=== PATIENT | female | born 1940 | race Caucasian/White ===

== ENCOUNTER 2017-07-08 15:56 | Inpatient (IN) ==
[2017-07-08] MEDS ORDERED: ALBUTEROL 2.5 MG/3 ML NEB RESP TX STA (17:14)
[2017-07-08] MEDS ORDERED: FUROSEMIDE 40 MG/4 ML VIAL IV STA (17:26)
[2017-07-08] MEDS ORDERED: FUROSEMIDE 40 MG/4 ML VIAL ONE (17:38)
[2017-07-08 17:55] LABS: Basophils % 0.7 % (0.0-0.8); Eosinophils % 0.2 % (0.00-10.9); Hematocrit 32.3 VOL% (35.7-47.0); Hemoglobin 10.1 GM/DL (12.0-16.0); Immature Granulocytes % 0.7 %; Immature Granulocytes Absolute 0.04 #; Lymphocytes # 0.9 10*3/uL (1.4-4.0); Lymphocytes % 14.5 % (21.3-54.2); Mean Corpuscular HGB Conc 31.3 GM/DL (32-36); Mean Corpuscular Hemoglobin 29 PG (27-34); Mean Corpuscular Volume 93.4 FL (87-102); Mean Platelet Volume 10.9 FL (9.6-12.0); Monocytes # 0.5 10*3/uL (0.11-0.8); Neutrophils # 4.6 10*3/uL (1.4-7.4); Neutrophils % 75.9 % (38.7-73.9); Platelet Count 199 T/CUMM (130-400); Red Blood Count 3.46 MC/CUMM (3.8-5.5); Red Cell Distribution Width 18.6 % (9.3-17.3)
[2017-07-08] MEDS ORDERED: ACETAMINOPHEN 325 MG TABLET PO PRN (18:03)
[2017-07-08] MEDS ORDERED: MORPHINE 2 MG/1 ML SYRINGE IV PRN (18:03)
[2017-07-08] MEDS ORDERED: DEXTROSE 50% 25 GM/50 ML VIAL IV PRN (18:03)
[2017-07-08] MEDS ORDERED: LACTULOSE 20 GM/30 ML UDCUP PO PRN (18:03)
[2017-07-08] MEDS ORDERED: ZALEPLON 5 MG CAPSULE PO PRN (18:03)
[2017-07-08] MEDS ORDERED: ONDANSETRON 4 MG/2 ML VIAL IV PRN (18:03)
[2017-07-08] MEDS ORDERED: GLUCAGON 1 MG VIAL IM PRN (18:03)
[2017-07-08] MEDS ORDERED: MAGNESIUM SULF RIDER 4 GM in PREMIX 1 EACH IV PRN (18:03)
[2017-07-08] MEDS ORDERED: WARFARIN 5 MG TABLET PO STA (18:25)
[2017-07-08] MEDS ORDERED: ENOXAPARIN 40 MG/0.4 ML SYRINGE SUBCUT SCH (18:30)
[2017-07-08 18:55] LABS: Alanine Aminotransferase 21 U/L (13-56); Albumin 3.9 G/DL (3.4-5.0); Alkaline Phosphatase 87 U/L (45-117); Aspartate Amino Transferase 22 U/L (0-37); Blood Urea Nitrogen 13 MG/DL (7-18); Calcium 9.1 MG/DL (8.5-10.1); Glucose 101 MG/DL (74-106); Potassium 3.9 MMOL/L (3.5-5.1); Sodium 136 MMOL/L (136-145); Total Protein 7.7 G/DL (6.4-8.3); Troponin I Only < 0.015 NG/ML (0.00-0.045)
[2017-07-08] MEDS ORDERED: ENOXAPARIN 40 MG/0.4 ML SYRINGE ONE (19:14)
[2017-07-08] MEDS: LEVALBUTEROL 0.63 MG/3 ML NEB RESP TX SCH (19:15)
[2017-07-08 19:41] LABS: INR 3.8
[2017-07-08 19:48] LABS: PT Patient Result 38.1 SECS
[2017-07-08] MEDS: hydrALAZINE 25 MG TABLET PO SCH (22:01)
[2017-07-08] MEDS: METHENAMINE HIPPURATE 1 GM TABLET PO SCH (22:01)
[2017-07-09] MEDS: LEVALBUTEROL 0.63 MG/3 ML NEB RESP TX SCH ×4 (01:48→20:09)
[2017-07-09 05:59] LABS: Basophils % 0.7 % (0.0-0.8); Hematocrit 28.9 VOL% (35.7-47.0); Hemoglobin 9.5 GM/DL (12.0-16.0); Immature Granulocytes % 0.5 %; Immature Granulocytes Absolute 0.03 #; Lymphocytes # 0.8 10*3/uL (1.4-4.0); Lymphocytes % 13.8 % (21.3-54.2); Mean Corpuscular HGB Conc 32.9 GM/DL (32-36); Mean Corpuscular Hemoglobin 29 PG (27-34); Mean Corpuscular Volume 89.2 FL (87-102); Mean Platelet Volume 11.1 FL (9.6-12.0); Monocytes # 0.6 10*3/uL (0.11-0.8); Monocytes % 10.4 % (1.7-12.7); Neutrophils # 4.3 10*3/uL (1.4-7.4); Neutrophils % 74.6 % (38.7-73.9); Platelet Count 199 T/CUMM (130-400); Red Blood Count 3.24 MC/CUMM (3.8-5.5); Red Cell Distribution Width 18.6 % (9.3-17.3); White Blood Count 5.8 T/CUMM (4-12)
[2017-07-09 06:20] LABS: INR 3.1
[2017-07-09 06:22] LABS: PT Patient Result 31.4 SECS
[2017-07-09 06:54] LABS: Calcium 9.1 MG/DL (8.5-10.1); Magnesium 1.6 MG/DL (1.8-2.4); Osmolality,Calculated 272.8 MOS/KG (273-304); Potassium 3.3 MMOL/L (3.5-5.1); Risk Ratio 1.87
[2017-07-09] MEDS: MAGNESIUM SULF RIDER 2 GM in PREMIX 1 EACH IV PRN (07:13)
[2017-07-09] MEDS: hydrALAZINE 25 MG TABLET PO SCH ×2 (10:06→21:01)
[2017-07-09] MEDS: POTASSIUM CHLORIDE 20 MEQ TABLET PO PRN ×3 (10:06→14:15)
[2017-07-09] MEDS: DILTIAZEM CD 120 MG CAPSULE PO SCH (10:07)
[2017-07-09] MEDS: ASPIRIN EC 81 MG TABLET PO SCH (10:07)
[2017-07-09] MEDS: BISOPROLOL/HCTZ 10-6.25 MG TABLET PO SCH (10:07)
[2017-07-09] MEDS: METHENAMINE HIPPURATE 1 GM TABLET PO SCH ×2 (10:07→21:01)
[2017-07-09] MEDS: ALLOPURINOL 100 MG TABLET PO SCH (10:07)
[2017-07-09] MEDS: FOLIC ACID 1 MG TABLET PO SCH (10:08)
[2017-07-09] MEDS: HYDROXYCHLOROQUINE 200 MG TABLET PO SCH (10:08)
[2017-07-09] MEDS: DOCUSATE SODIUM 100 MG CAPSULE PO PRN (10:08)
[2017-07-09] MEDS: CETIRIZINE 10 MG TABLET PO SCH (10:08)
[2017-07-09] MEDS: ISOSORBIDE MONONITRATE 30 MG TABLET PO SCH (10:08)
[2017-07-09] MEDS: LISINOPRIL 20 MG TABLET PO SCH (10:08)
[2017-07-09] MEDS: EZETIMIBE 10 MG TABLET PO SCH (10:08)
[2017-07-09] MEDS: PANTOPRAZOLE 40 MG TABLET PO SCH (10:09)
[2017-07-09] MEDS: FUROSEMIDE 40 MG/4 ML VIAL IV SCH ×2 (12:32→16:35)
[2017-07-09 13:13] LABS: Apearance,Urine CLEAR (Clear); Bacteria,Urine Occasional /HPF (Few); Bilirubin,Urine Negative (Negative); Blood, Urine Moderate mg/dL (Negative); Glucose,Urine (UA) Negative (Negative); Hyaline Casts,Urine 1 /LPF (0-3); Ketones,Urine Negative (Negative); Mucus,Urine Occasional /LPF (Occasional); Nitrite,Urine Negative (Negative); Protein,Urine Negative; RBC,Urine 2 /HPF (0-4); Squamous Epithelial Cell,Urine Occasional /HPF (0-10); Urine Color Yellow (Yellow); Urine Specific Gravity 1.011 (1.001-1.035); Urine Urobilinogen < 2.0 EU/DL (0.2-1.0); WBC,Urine 2 /HPF (0-6)
[2017-07-10] MEDS: LEVALBUTEROL 0.63 MG/3 ML NEB RESP TX SCH ×4 (01:10→21:42)
[2017-07-10 03:33] LABS: Basophils % 0.5 % (0.0-0.8); Eosinophils % 0.1 % (0.00-10.9); Hematocrit 30.9 VOL% (35.7-47.0); Hemoglobin 9.6 GM/DL (12.0-16.0); Immature Granulocytes % 0.6 %; Immature Granulocytes Absolute 0.05 #; Lymphocytes # 1.3 10*3/uL (1.4-4.0); Lymphocytes % 16.1 % (21.3-54.2); Mean Corpuscular HGB Conc 31.1 GM/DL (32-36); Mean Corpuscular Hemoglobin 28 PG (27-34); Mean Corpuscular Volume 91.4 FL (87-102); Monocytes # 0.7 10*3/uL (0.11-0.8); Monocytes % 8.6 % (1.7-12.7); Neutrophils # 5.7 10*3/uL (1.4-7.4); Neutrophils % 74.1 % (38.7-73.9); Platelet Count 215 T/CUMM (130-400); Red Blood Count 3.38 MC/CUMM (3.8-5.5); Red Cell Distribution Width 18.6 % (9.3-17.3); White Blood Count 7.8 T/CUMM (4-12)
[2017-07-10 04:19] LABS: Calcium 8.8 MG/DL (8.5-10.1); Magnesium 1.8 MG/DL (1.8-2.4); Osmolality,Calculated 272.1 MOS/KG (273-304); Potassium 3.4 MMOL/L (3.5-5.1)
[2017-07-10] MEDS: POTASSIUM CHLORIDE 20 MEQ TABLET PO PRN ×3 (04:43→09:05)
[2017-07-10] MEDS: LISINOPRIL 20 MG TABLET PO SCH (09:02)
[2017-07-10] MEDS: EZETIMIBE 10 MG TABLET PO SCH (09:03)
[2017-07-10] MEDS: ISOSORBIDE MONONITRATE 30 MG TABLET PO SCH (09:05)
[2017-07-10] MEDS: HYDROXYCHLOROQUINE 200 MG TABLET PO SCH (09:05)
[2017-07-10] MEDS: ALLOPURINOL 100 MG TABLET PO SCH ×2 (09:06→22:12)
[2017-07-10] MEDS: PANTOPRAZOLE 40 MG TABLET PO SCH (09:06)
[2017-07-10] MEDS: hydrALAZINE 25 MG TABLET PO SCH ×2 (09:06→22:12)
[2017-07-10] MEDS: DILTIAZEM CD 120 MG CAPSULE PO SCH (09:06)
[2017-07-10] MEDS: CETIRIZINE 10 MG TABLET PO SCH (09:06)
[2017-07-10] MEDS: METHENAMINE HIPPURATE 1 GM TABLET PO SCH ×2 (09:06→22:11)
[2017-07-10] MEDS: ASPIRIN EC 81 MG TABLET PO SCH (09:06)
[2017-07-10] MEDS: FOLIC ACID 1 MG TABLET PO SCH ×2 (09:06→22:12)
[2017-07-10] MEDS: FUROSEMIDE 40 MG/4 ML VIAL IV SCH ×2 (09:06→17:05)
[2017-07-10] MEDS: BISOPROLOL/HCTZ 10-6.25 MG TABLET PO SCH (09:06)
[2017-07-10] MEDS ORDERED: ALLOPURINOL 100 MG TABLET PO SCH (21:00)
[2017-07-10] MEDS: cycloSPORINE OPH EMUL 1 VIAL BOTH EYES SCH (21:01)
[2017-07-10] MEDS: CHOLESTYRAMINE 4 GM PACK PO SCH (22:12)
[2017-07-11] MEDS: LEVALBUTEROL 0.63 MG/3 ML NEB RESP TX SCH ×4 (01:12→20:38)
[2017-07-11 04:28] LABS: Basophils # 0.1 10*3/uL (0.0-0.2); Basophils % 0.8 % (0.0-0.8); Eosinophils % 0.1 % (0.00-10.9); Hematocrit 30.3 VOL% (35.7-47.0); Hemoglobin 9.9 GM/DL (12.0-16.0); Immature Granulocytes % 0.8 %; Immature Granulocytes Absolute 0.06 #; Lymphocytes # 1.2 10*3/uL (1.4-4.0); Lymphocytes % 16.3 % (21.3-54.2); Mean Corpuscular HGB Conc 32.7 GM/DL (32-36); Mean Corpuscular Hemoglobin 29 PG (27-34); Mean Corpuscular Volume 89.1 FL (87-102); Mean Platelet Volume 11.3 FL (9.6-12.0); Monocytes # 0.5 10*3/uL (0.11-0.8); Monocytes % 6.7 % (1.7-12.7); Neutrophils # 5.6 10*3/uL (1.4-7.4); Neutrophils % 75.3 % (38.7-73.9); Platelet Count 227 T/CUMM (130-400); Red Cell Distribution Width 18.5 % (9.3-17.3); White Blood Count 7.4 T/CUMM (4-12)
[2017-07-11 05:05] LABS: Calcium 8.5 MG/DL (8.5-10.1); Magnesium 1.7 MG/DL (1.8-2.4); Osmolality,Calculated 276.8 MOS/KG (273-304); Potassium 3.5 MMOL/L (3.5-5.1)
[2017-07-11 05:10] LABS: INR 1.8; PT Patient Result 18.9 SECS
[2017-07-11] MEDS: MAGNESIUM SULF RIDER 2 GM in PREMIX 1 EACH IV PRN (06:08)
[2017-07-11] MEDS ORDERED: GLUCAGON 1 MG VIAL IM PRN (11:33)
[2017-07-11] MEDS ORDERED: DEXTROSE 50% 25 GM/50 ML VIAL IV PRN (11:33)
[2017-07-11] MEDS: FUROSEMIDE 40 MG/4 ML VIAL IV SCH ×2 (11:40→17:49)
[2017-07-11] MEDS: LISINOPRIL 20 MG TABLET PO SCH (11:44)
[2017-07-11] MEDS: LACTOBACILLUS ACIDOPHILUS/BULGARICUS CAPLET PO SCH (11:44)
[2017-07-11] MEDS: ISOSORBIDE MONONITRATE 30 MG TABLET PO SCH (11:45)
[2017-07-11] MEDS: EZETIMIBE 10 MG TABLET PO SCH (11:45)
[2017-07-11] MEDS: HYDROXYCHLOROQUINE 200 MG TABLET PO SCH (11:45)
[2017-07-11] MEDS: DILTIAZEM CD 120 MG CAPSULE PO SCH (11:45)
[2017-07-11] MEDS: hydrALAZINE 25 MG TABLET PO SCH ×2 (11:45→21:21)
[2017-07-11] MEDS: ASPIRIN EC 81 MG TABLET PO SCH (11:45)
[2017-07-11] MEDS: CETIRIZINE 10 MG TABLET PO SCH (11:46)
[2017-07-11] MEDS: FOLIC ACID 1 MG TABLET PO SCH ×2 (11:46→21:21)
[2017-07-11] MEDS: PANTOPRAZOLE 40 MG TABLET PO SCH (11:46)
[2017-07-11] MEDS: cycloSPORINE OPH EMUL 1 VIAL BOTH EYES SCH ×2 (11:47→21:21)
[2017-07-11] MEDS: CHOLESTYRAMINE 4 GM PACK PO SCH ×2 (11:47→21:22)
[2017-07-11] MEDS: METHENAMINE HIPPURATE 1 GM TABLET PO SCH ×3 (11:49→21:20)
[2017-07-11] MEDS: AZELASTINE NASAL 137 MCG/SPRAY 30 ML BOTTLE BOTH NARES SCH (11:50)
[2017-07-11] MEDS: BISOPROLOL/HCTZ 10-6.25 MG TABLET PO SCH (11:57)
[2017-07-11] MEDS: ALLOPURINOL 100 MG TABLET PO SCH (21:20)
[2017-07-11] MEDS: DOCUSATE SODIUM 100 MG CAPSULE PO PRN (21:21)
[2017-07-12] MEDS: LEVALBUTEROL 0.63 MG/3 ML NEB RESP TX SCH ×4 (00:28→21:35)
[2017-07-12 08:15] LABS: INR 1.5; PT Patient Result 15.7 SECS
[2017-07-12 08:20] LABS: Osmolality,Calculated 279.1 MOS/KG (273-304); Potassium 4.1 MMOL/L (3.5-5.1)
[2017-07-12] MEDS: LACTOBACILLUS ACIDOPHILUS/BULGARICUS CAPLET PO SCH (08:57)
[2017-07-12] MEDS: LISINOPRIL 20 MG TABLET PO SCH (08:58)
[2017-07-12] MEDS: HYDROXYCHLOROQUINE 200 MG TABLET PO SCH (08:58)
[2017-07-12] MEDS: ISOSORBIDE MONONITRATE 30 MG TABLET PO SCH (08:58)
[2017-07-12] MEDS: EZETIMIBE 10 MG TABLET PO SCH (08:58)
[2017-07-12] MEDS: hydrALAZINE 25 MG TABLET PO SCH ×2 (08:59→22:44)
[2017-07-12] MEDS: PANTOPRAZOLE 40 MG TABLET PO SCH (08:59)
[2017-07-12] MEDS: ASPIRIN EC 81 MG TABLET PO SCH (08:59)
[2017-07-12] MEDS: BISOPROLOL/HCTZ 10-6.25 MG TABLET PO SCH (08:59)
[2017-07-12] MEDS: CETIRIZINE 10 MG TABLET PO SCH (08:59)
[2017-07-12] MEDS: FOLIC ACID 1 MG TABLET PO SCH ×2 (08:59→22:44)
[2017-07-12] MEDS: DILTIAZEM CD 120 MG CAPSULE PO SCH (08:59)
[2017-07-12] MEDS: cycloSPORINE OPH EMUL 1 VIAL BOTH EYES SCH ×2 (09:00→22:44)
[2017-07-12] MEDS: METHENAMINE HIPPURATE 1 GM TABLET PO SCH ×2 (09:02→22:44)
[2017-07-12] MEDS: AZELASTINE NASAL 137 MCG/SPRAY 30 ML BOTTLE BOTH NARES SCH (09:03)
[2017-07-12] MEDS: FUROSEMIDE 40 MG/4 ML VIAL IV SCH (09:03)
[2017-07-12] MEDS: CHOLESTYRAMINE 4 GM PACK PO SCH ×2 (09:03→22:26)
[2017-07-12] MEDS ORDERED: METHOTREXATE 50 MG/2 ML VIAL SUBCUT SCH (10:00)
[2017-07-12] MEDS: ALLOPURINOL 100 MG TABLET PO SCH (18:00)
[2017-07-13] MEDS: LEVALBUTEROL 0.63 MG/3 ML NEB RESP TX SCH ×4 (00:46→19:36)
[2017-07-13 04:56] LABS: Basophils % 0.4 % (0.0-0.8); Eosinophils % 0.2 % (0.00-10.9); Hematocrit 29.1 VOL% (35.7-47.0); Hemoglobin 9.1 GM/DL (12.0-16.0); Immature Granulocytes % 0.7 %; Immature Granulocytes Absolute 0.06 #; Lymphocytes # 1.1 10*3/uL (1.4-4.0); Lymphocytes % 11.6 % (21.3-54.2); Mean Corpuscular HGB Conc 31.3 GM/DL (32-36); Mean Corpuscular Hemoglobin 29 PG (27-34); Mean Corpuscular Volume 91.5 FL (87-102); Mean Platelet Volume 11.2 FL (9.6-12.0); Monocytes # 0.8 10*3/uL (0.11-0.8); Neutrophils # 7.2 10*3/uL (1.4-7.4); Neutrophils % 78.1 % (38.7-73.9); Platelet Count 225 T/CUMM (130-400); Red Blood Count 3.18 MC/CUMM (3.8-5.5); Red Cell Distribution Width 18.4 % (9.3-17.3); White Blood Count 9.2 T/CUMM (4-12)
[2017-07-13 05:04] LABS: INR 1.3; PT Patient Result 13.3 SECS
[2017-07-13 05:25] LABS: Calcium 8.1 MG/DL (8.5-10.1); Magnesium 2.1 MG/DL (1.8-2.4); Osmolality,Calculated 279.1 MOS/KG (273-304); Potassium 3.6 MMOL/L (3.5-5.1)
[2017-07-13] MEDS: EZETIMIBE 10 MG TABLET PO SCH (09:49)
[2017-07-13] MEDS: PANTOPRAZOLE 40 MG TABLET PO SCH (09:49)
[2017-07-13] MEDS: LACTOBACILLUS ACIDOPHILUS/BULGARICUS CAPLET PO SCH (09:50)
[2017-07-13] MEDS: CETIRIZINE 10 MG TABLET PO SCH (09:50)
[2017-07-13] MEDS: ISOSORBIDE MONONITRATE 30 MG TABLET PO SCH (09:50)
[2017-07-13] MEDS: FOLIC ACID 1 MG TABLET PO SCH ×2 (09:50→21:30)
[2017-07-13] MEDS: DILTIAZEM CD 120 MG CAPSULE PO SCH (09:50)
[2017-07-13] MEDS: cycloSPORINE OPH EMUL 1 VIAL BOTH EYES SCH ×2 (09:50→21:31)
[2017-07-13] MEDS: ASPIRIN EC 81 MG TABLET PO SCH (09:50)
[2017-07-13] MEDS: BISOPROLOL/HCTZ 10-6.25 MG TABLET PO SCH (09:50)
[2017-07-13] MEDS: HYDROXYCHLOROQUINE 200 MG TABLET PO SCH (09:50)
[2017-07-13] MEDS: METHENAMINE HIPPURATE 1 GM TABLET PO SCH ×2 (09:55→21:30)
[2017-07-13] MEDS: CHOLESTYRAMINE 4 GM PACK PO SCH ×2 (10:35→21:30)
[2017-07-13] MEDS: AZELASTINE NASAL 137 MCG/SPRAY 30 ML BOTTLE BOTH NARES SCH ×2 (10:35→21:31)
[2017-07-13] MEDS: ENOXAPARIN 80 MG/0.8 ML SYRINGE SUBCUT SCH (11:50)
[2017-07-13] MEDS: ALLOPURINOL 100 MG TABLET PO SCH (18:04)
[2017-07-14] MEDS: LEVALBUTEROL 0.63 MG/3 ML NEB RESP TX SCH ×4 (00:10→20:15)
[2017-07-14 05:14] LABS: Basophils # 0.1 10*3/uL (0.0-0.2); Basophils % 0.8 % (0.0-0.8); Hematocrit 29.8 VOL% (35.7-47.0); Hemoglobin 9.4 GM/DL (12.0-16.0); Immature Granulocytes % 0.3 %; Immature Granulocytes Absolute 0.02 #; Lymphocytes # 1.3 10*3/uL (1.4-4.0); Lymphocytes % 21.2 % (21.3-54.2); Mean Corpuscular HGB Conc 31.5 GM/DL (32-36); Mean Corpuscular Hemoglobin 29 PG (27-34); Mean Corpuscular Volume 91.7 FL (87-102); Mean Platelet Volume 11.3 FL (9.6-12.0); Monocytes # 0.3 10*3/uL (0.11-0.8); Monocytes % 4.7 % (1.7-12.7); Neutrophils # 4.5 10*3/uL (1.4-7.4); Platelet Count 211 T/CUMM (130-400); Red Blood Count 3.25 MC/CUMM (3.8-5.5); Red Cell Distribution Width 18.3 % (9.3-17.3); White Blood Count 6.1 T/CUMM (4-12)
[2017-07-14 05:18] LABS: INR 1.2; PT Patient Result 12.1 SECS
[2017-07-14 05:51] LABS: Calcium 8.4 MG/DL (8.5-10.1); Magnesium 2.3 MG/DL (1.8-2.4); Osmolality,Calculated 283.7 MOS/KG (273-304); Potassium 3.7 MMOL/L (3.5-5.1)
[2017-07-14] MEDS: METHENAMINE HIPPURATE 1 GM TABLET PO SCH ×2 (14:14→23:13)
[2017-07-14] MEDS: DILTIAZEM CD 120 MG CAPSULE PO SCH (14:14)
[2017-07-14] MEDS: EZETIMIBE 10 MG TABLET PO SCH (14:14)
[2017-07-14] MEDS: HYDROXYCHLOROQUINE 200 MG TABLET PO SCH (14:14)
[2017-07-14] MEDS: PANTOPRAZOLE 40 MG TABLET PO SCH (14:14)
[2017-07-14] MEDS: BISOPROLOL/HCTZ 10-6.25 MG TABLET PO SCH (14:14)
[2017-07-14] MEDS: LACTOBACILLUS ACIDOPHILUS/BULGARICUS CAPLET PO SCH (14:14)
[2017-07-14] MEDS: FOLIC ACID 1 MG TABLET PO SCH ×2 (14:15→23:14)
[2017-07-14] MEDS: ENOXAPARIN 80 MG/0.8 ML SYRINGE SUBCUT SCH ×3 (14:15→19:04)
[2017-07-14] MEDS: cycloSPORINE OPH EMUL 1 VIAL BOTH EYES SCH ×2 (14:15→23:12)
[2017-07-14] MEDS: CETIRIZINE 10 MG TABLET PO SCH (14:15)
[2017-07-14] MEDS: ISOSORBIDE MONONITRATE 30 MG TABLET PO SCH (14:15)
[2017-07-14] MEDS: ASPIRIN EC 81 MG TABLET PO SCH (14:15)
[2017-07-14] MEDS: ALLOPURINOL 100 MG TABLET PO SCH (19:03)
[2017-07-14] MEDS: AZELASTINE NASAL 137 MCG/SPRAY 30 ML BOTTLE BOTH NARES SCH (23:14)
[2017-07-14] MEDS: CHOLESTYRAMINE 4 GM PACK PO SCH (23:15)
[2017-07-15] MEDS: LEVALBUTEROL 0.63 MG/3 ML NEB RESP TX SCH ×4 (01:05→20:08)
[2017-07-15 04:22] LABS: Basophils # 0.1 10*3/uL (0.0-0.2); Basophils % 0.9 % (0.0-0.8); Hematocrit 29.2 VOL% (35.7-47.0); Hemoglobin 9.3 GM/DL (12.0-16.0); Immature Granulocytes % 0.5 %; Immature Granulocytes Absolute 0.03 #; Lymphocytes # 1.3 10*3/uL (1.4-4.0); Lymphocytes % 21.5 % (21.3-54.2); Mean Corpuscular HGB Conc 31.8 GM/DL (32-36); Mean Corpuscular Hemoglobin 29 PG (27-34); Mean Corpuscular Volume 90.7 FL (87-102); Mean Platelet Volume 11.1 FL (9.6-12.0); Monocytes # 0.2 10*3/uL (0.11-0.8); Monocytes % 3.8 % (1.7-12.7); Neutrophils # 4.3 10*3/uL (1.4-7.4); Neutrophils % 73.3 % (38.7-73.9); Platelet Count 218 T/CUMM (130-400); Red Blood Count 3.22 MC/CUMM (3.8-5.5); Red Cell Distribution Width 18.3 % (9.3-17.3); White Blood Count 5.9 T/CUMM (4-12)
[2017-07-15 04:29] LABS: INR 1.2; PT Patient Result 12.1 SECS
[2017-07-15 04:49] LABS: Calcium 8.6 MG/DL (8.5-10.1); Giant Platelets Few; Hypochromasia 1+; Magnesium 2.1 MG/DL (1.8-2.4); Osmolality,Calculated 283.4 MOS/KG (273-304); Ovalocytes Slight; Platelet Estimate Adequate
[2017-07-15] MEDS ORDERED: SODIUM CHLORIDE 0.45% 1,000 ML IV SCH (06:00)
[2017-07-15] MEDS ORDERED: diphenhydrAMINE CAP 25 MG CAPSULE PO ONE (07:00)
[2017-07-15] MEDS ORDERED: DIAZEPAM 5 MG TABLET PO ONE (07:00)
[2017-07-15] MEDS: PANTOPRAZOLE 40 MG TABLET PO SCH (09:12)
[2017-07-15] MEDS: HYDROXYCHLOROQUINE 200 MG TABLET PO SCH (09:12)
[2017-07-15] MEDS: ASPIRIN EC 81 MG TABLET PO SCH (09:14)
[2017-07-15] MEDS: EZETIMIBE 10 MG TABLET PO SCH (09:14)
[2017-07-15] MEDS: LACTOBACILLUS ACIDOPHILUS/BULGARICUS CAPLET PO SCH (09:14)
[2017-07-15] MEDS: METHENAMINE HIPPURATE 1 GM TABLET PO SCH ×2 (09:14→20:51)
[2017-07-15] MEDS: DILTIAZEM CD 120 MG CAPSULE PO SCH (09:15)
[2017-07-15] MEDS: ENOXAPARIN 80 MG/0.8 ML SYRINGE SUBCUT SCH (09:15)
[2017-07-15] MEDS: BISOPROLOL/HCTZ 10-6.25 MG TABLET PO SCH (09:15)
[2017-07-15] MEDS: cycloSPORINE OPH EMUL 1 VIAL BOTH EYES SCH ×2 (09:15→20:51)
[2017-07-15] MEDS: FOLIC ACID 1 MG TABLET PO SCH ×2 (09:15→20:51)
[2017-07-15] MEDS: ISOSORBIDE MONONITRATE 30 MG TABLET PO SCH (09:15)
[2017-07-15] MEDS: CETIRIZINE 10 MG TABLET PO SCH (09:16)
[2017-07-15] MEDS ORDERED: LIDOCAINE 1% 20 ML VIAL ONE (10:04)
[2017-07-15] MEDS ORDERED: HEPARIN/NACL 0.9% 2 UNITS/ML 2,000 ML IV ONE (10:04)
[2017-07-15] MEDS ORDERED: MIDAZOLAM 2 MG/2 ML VIAL ONE (10:09)
[2017-07-15] MEDS ORDERED: fentaNYL 100 MCG/2 ML VIAL ONE (10:09)
[2017-07-15] MEDS ORDERED: ADENOSINE 90 MG/30 ML VIAL IV ONE (10:23)
[2017-07-15] MEDS ORDERED: MORPHINE 10 MG/1 ML VIAL IV PRN (14:30)
[2017-07-15] MEDS ORDERED: diphenhydrAMINE CAP 25 MG CAPSULE PO PRN (16:14)
[2017-07-15] MEDS ORDERED: WARFARIN 5 MG TABLET PO SCH (18:00)
[2017-07-15] MEDS: ALLOPURINOL 100 MG TABLET PO SCH (18:09)
[2017-07-15] MEDS: CHOLESTYRAMINE 4 GM PACK PO SCH (20:54)
[2017-07-15] MEDS: AZELASTINE NASAL 137 MCG/SPRAY 30 ML BOTTLE BOTH NARES SCH (20:54)
[2017-07-16] MEDS: LEVALBUTEROL 0.63 MG/3 ML NEB RESP TX SCH ×2 (01:43→08:14)
[2017-07-16 05:02] LABS: Basophils # 0.1 10*3/uL (0.0-0.2); Basophils % 1.2 % (0.0-0.8); Hematocrit 27.8 VOL% (35.7-47.0); Hemoglobin 8.6 GM/DL (12.0-16.0); Immature Granulocytes % 0.6 %; Immature Granulocytes Absolute 0.03 #; Lymphocytes # 1.1 10*3/uL (1.4-4.0); Mean Corpuscular HGB Conc 30.9 GM/DL (32-36); Mean Corpuscular Hemoglobin 29 PG (27-34); Mean Corpuscular Volume 93.3 FL (87-102); Mean Platelet Volume 10.9 FL (9.6-12.0); Monocytes # 0.3 10*3/uL (0.11-0.8); Monocytes % 4.9 % (1.7-12.7); Neutrophils # 3.6 10*3/uL (1.4-7.4); Neutrophils % 71.3 % (38.7-73.9); Platelet Count 186 T/CUMM (130-400); Red Blood Count 2.98 MC/CUMM (3.8-5.5); Red Cell Distribution Width 18.1 % (9.3-17.3); White Blood Count 5.1 T/CUMM (4-12)
[2017-07-16 05:30] LABS: Calcium 7.9 MG/DL (8.5-10.1); Osmolality,Calculated 286.3 MOS/KG (273-304); Potassium 4.4 MMOL/L (3.5-5.1)
[2017-07-16 08:23] VITALS: BP 124/61
[2017-07-16] MEDS: DILTIAZEM CD 120 MG CAPSULE PO SCH (09:35)
[2017-07-16] MEDS: BISOPROLOL/HCTZ 10-6.25 MG TABLET PO SCH (09:36)
[2017-07-16] MEDS: HYDROXYCHLOROQUINE 200 MG TABLET PO SCH (09:36)
[2017-07-16] MEDS: EZETIMIBE 10 MG TABLET PO SCH (09:36)
[2017-07-16] MEDS: LACTOBACILLUS ACIDOPHILUS/BULGARICUS CAPLET PO SCH (09:36)
[2017-07-16] MEDS: ISOSORBIDE MONONITRATE 30 MG TABLET PO SCH (09:36)
[2017-07-16] MEDS: PANTOPRAZOLE 40 MG TABLET PO SCH (09:36)
[2017-07-16] MEDS: ASPIRIN EC 81 MG TABLET PO SCH (09:36)
[2017-07-16] MEDS: CETIRIZINE 10 MG TABLET PO SCH (09:36)
[2017-07-16] MEDS: FOLIC ACID 1 MG TABLET PO SCH (09:36)
[2017-07-16] MEDS: cycloSPORINE OPH EMUL 1 VIAL BOTH EYES SCH (09:37)
[2017-07-16] MEDS: METHENAMINE HIPPURATE 1 GM TABLET PO SCH (09:38)
== END 2017-07-16 11:58 | disposition home or self-care (01) | DRG 196 ==
LOC: N.EDINP 15:56 → N.ED 15:56 → N.TELEN 19:30
PROVIDERS: ADMIT Internal Medicine Cardiovascular Disease; ATTEND Internal Medicine Cardiovascular Disease

== ENCOUNTER 2018-09-16 08:08 | Inpatient (IN) ==
[2018-09-16] MEDS ORDERED: SODIUM CHLORIDE 0.9% 1,750 ML IV ONE (10:15)
[2018-09-16 10:27] LABS: Basophils % 0.2 % (0.0-0.8); Hematocrit 29.1 VOL% (35.7-47.0); Hemoglobin 9.1 GM/DL (12.0-16.0); Immature Granulocytes % 9.3 %; Immature Granulocytes Absolute 0.76 #; Lymphocytes # 0.3 10*3/uL (1.4-4.0); Lymphocytes % 3.9 % (21.3-54.2); Mean Corpuscular HGB Conc 31.3 GM/DL (32-36); Mean Corpuscular Hemoglobin 29 PG (27-34); Mean Corpuscular Volume 92.7 FL (87-102); Mean Platelet Volume 12.2 FL (9.6-12.0); Monocytes # 0.2 10*3/uL (0.11-0.8); Monocytes % 2.8 % (1.7-12.7); Neutrophils # 6.9 10*3/uL (1.4-7.4); Neutrophils % 83.8 % (38.7-73.9); Platelet Count 225 T/CUMM (130-400); Red Blood Count 3.14 MC/CUMM (3.8-5.5); Red Cell Distribution Width 15.1 % (9.3-17.3); White Blood Count 8.2 T/CUMM (4-12)
[2018-09-16] MEDS ORDERED: SODIUM CHLORIDE 0.9% 1,000 ML IV SCH (10:30)
[2018-09-16 10:41] LABS: INR 3.3; Troponin I < 0.015 NG/ML (0.00-0.045)
[2018-09-16 10:47] LABS: PT Patient Result 35.3 SECS
[2018-09-16 10:49] LABS: Alanine Aminotransferase < 9 U/L (13-56); Albumin 2.2 G/DL (3.4-5.0); Alkaline Phosphatase 95 U/L (45-117); Aspartate Amino Transferase 20 U/L (0-37); Blood Urea Nitrogen 35 MG/DL (7-18); Glucose 115 MG/DL (74-106); Osmolality,Calculated 265.1 MOS/KG (273-304); Potassium 2.6 MMOL/L (3.5-5.1); Sodium 128 MMOL/L (136-145); Total Protein 5.8 G/DL (6.4-8.3)
[2018-09-16] MEDS: PIPERACILLIN/TAZOBACTAM 3,375 MG in SODIUM CHLORIDE 0.9% 100 ML IV SCH ×2 (10:50→18:13)
[2018-09-16 10:51] LABS: ABG HCO3 21.1 MMOL/L (20-26); ABG Oxygen Saturation 96.7 % (95-100); ABG PCO2 39.4 MM HG (35-48); ABG PH 7.343 (7.35-7.45); ABG TCO2 19.9 MMOL/L (23-27)
[2018-09-16 10:51] LABS: Band Neutrophils 7 % (0-10); Hypochromasia 1+; Lymphocytes 3 % (20-55); Metamyelocytes 1 %; Myelocytes 2 %; Segmented Neutrophils 78 % (50-85); Total Cells Counted 100
[2018-09-16 10:53] LABS: Calcium 5.8 MG/DL (8.5-10.1); Microcytosis Slight; Ovalocytes Slight; Platelet Estimate Normal
[2018-09-16 10:57] LABS: Amorphous Crystals,Urine Occasional /HPF (Few); Apearance,Urine Slightly Hazy (Clear); Bilirubin,Urine Negative (Negative); Blood, Urine Small mg/dL (Negative); Glucose,Urine (UA) Negative (Negative); Hyaline Casts,Urine 6 /LPF (0-3); Ketones,Urine Negative (Negative); Nitrite,Urine Negative (Negative); Protein,Urine 100 MG/DL; RBC,Urine 7 /HPF (0-4); Squamous Epithelial Cell,Urine Occasional /HPF (0-10); Urine Color Yellow (Yellow); Urine Specific Gravity 1.014 (1.001-1.035); Urine Urobilinogen < 2.0 EU/DL (0.2-1.0); WBC,Urine 5 /HPF (0-6)
[2018-09-16] MEDS ORDERED: CALCIUM CHLORIDE 1,000 MG/10 ML SYRINGE IV STA (11:02)
[2018-09-16] MEDS ORDERED: MAGNESIUM SULF RIDER 2 GM in PREMIX 1 EACH IV STA (11:03)
[2018-09-16] MEDS ORDERED: POTASSIUM CHLORIDE RIDER 20 MEQ in PREMIX 1 EACH IV STA (11:03)
[2018-09-16] MEDS ORDERED: POTASSIUM CHLORIDE RIDER 100 ML IV ONE ×2 (11:13→13:39)
[2018-09-16 11:17] LABS: Barbiturates Screen,Urine Negative (Negative); Benzodiazepines Screen,Urine Negative (Negative); Cannabinoid Screen,Urine Negative (Negative); Opiate Screen,Urine Positive (Negative); Phencyclidine Screen,Urine Negative (Negative)
[2018-09-16] MEDS ORDERED: ALBUTEROL 2.5 MG/3 ML NEB RESP TX PRN (12:14)
[2018-09-16] MEDS ORDERED: ONDANSETRON 4 MG/2 ML VIAL IV PRN (12:16)
[2018-09-16] MEDS ORDERED: ACETAMINOPHEN 325 MG TABLET PO PRN (12:16)
[2018-09-16] MEDS ORDERED: PANTOPRAZOLE 40 MG VIAL IV SCH (12:30)
[2018-09-16] MEDS ORDERED: LACTATED RINGERS 500 ML IV ONE (12:47)
[2018-09-16] MEDS: NOREPINEPHRINE 8 MG in SODIUM CHLORIDE 0.9% 242 ML IV PRN (13:51)
[2018-09-16] MEDS: LACTATED RINGERS 1,000 ML IV SCH ×2 (14:45→23:00)
[2018-09-16] MEDS ORDERED: SODIUM CHLORIDE 0.9% 500 ML IV ONE (17:40)
[2018-09-16] MEDS ORDERED: POTASSIUM CHLORIDE 20 MEQ TABLET PO ONE (17:43)
[2018-09-16] MEDS: PANTOPRAZOLE 40 MG TABLET PO SCH (21:02)
[2018-09-16] MEDS: LACTOBACILLUS ACIDOPHILUS/BULGARICUS CAPLET PO SCH (21:02)
[2018-09-16] MEDS: cycloSPORINE OPH EMUL 1 VIAL BOTH EYES SCH (21:03)
[2018-09-17] MEDS: NOREPINEPHRINE 8 MG in SODIUM CHLORIDE 0.9% 242 ML IV PRN (01:14)
[2018-09-17] MEDS: PIPERACILLIN/TAZOBACTAM 3,375 MG in SODIUM CHLORIDE 0.9% 100 ML IV SCH (02:46)
[2018-09-17 05:54] LABS: Eosinophils % 0.3 % (0.00-10.9); Hematocrit 27.8 VOL% (35.7-47.0); Hemoglobin 8.9 GM/DL (12.0-16.0); Immature Granulocytes % 0.7 %; Immature Granulocytes Absolute 0.11 #; Lymphocytes # 0.8 10*3/uL (1.4-4.0); Lymphocytes % 5.3 % (21.3-54.2); Mean Corpuscular Hemoglobin 29 PG (27-34); Mean Corpuscular Volume 91.4 FL (87-102); Mean Platelet Volume 11.9 FL (9.6-12.0); Monocytes # 0.3 10*3/uL (0.11-0.8); Neutrophils # 13.6 10*3/uL (1.4-7.4); Neutrophils % 91.7 % (38.7-73.9); Platelet Count 235 T/CUMM (130-400); Red Blood Count 3.04 MC/CUMM (3.8-5.5); Red Cell Distribution Width 15.2 % (9.3-17.3); White Blood Count 14.8 T/CUMM (4-12)
[2018-09-17 06:15] LABS: Alanine Aminotransferase < 9 U/L (13-56); Alkaline Phosphatase 97 U/L (45-117); Aspartate Amino Transferase 17 U/L (0-37); Band Neutrophils 4 % (0-10); Blood Urea Nitrogen 42 MG/DL (7-18); Burr Cells Slight; Calcium 6.4 MG/DL (8.5-10.1); Glucose 118 MG/DL (74-106); Hypochromasia 1+; Lymphocytes 8 % (20-55); Osmolality,Calculated 277.4 MOS/KG (273-304); Ovalocytes Slight; Platelet Estimate Adequate; Potassium 3.6 MMOL/L (3.5-5.1); Segmented Neutrophils 82 % (50-85); Sodium 133 MMOL/L (136-145); Total Cells Counted 100; Total Protein 5.4 G/DL (6.4-8.3)
[2018-09-17 06:16] LABS: Microcytosis Slight
[2018-09-17 07:06] LABS: PT Patient Result 59.6 SECS
[2018-09-17 07:08] LABS: INR 5.6
[2018-09-17] MEDS ORDERED: MAGNESIUM SULF RIDER 2 GM in PREMIX 1 EACH IV ONE (08:46)
[2018-09-17] MEDS: cycloSPORINE OPH EMUL 1 VIAL BOTH EYES SCH ×2 (08:51→21:42)
[2018-09-17] MEDS: CALCIUM (CARBONATE)/VITAMIN D 500 MG-200 UNIT TABLET PO SCH (08:52)
[2018-09-17] MEDS: FOLIC ACID 1 MG TABLET PO SCH (08:53)
[2018-09-17] MEDS: POTASSIUM CHLORIDE 20 MEQ TABLET PO SCH (08:53)
[2018-09-17] MEDS: LACTOBACILLUS ACIDOPHILUS/BULGARICUS CAPLET PO SCH ×2 (08:53→21:42)
[2018-09-17] MEDS: AZELASTINE NASAL 137 MCG/SPRAY 30 ML BOTTLE BOTH NARES SCH (08:53)
[2018-09-17] MEDS ORDERED: MYCOPHENOLATE MOFETIL 250 MG CAPSULE PO SCH (09:00)
[2018-09-17] MEDS: LACTATED RINGERS 1,000 ML IV SCH ×3 (09:27→17:59)
[2018-09-17] MEDS: cefTRIAXone 1,000 MG in SYRINGE 1 EACH IV SCH (09:39)
[2018-09-17] MEDS: AZITHROMYCIN 250 MG TABLET PO SCH (09:39)
[2018-09-17] MEDS: MYCOPHENOLATE MOFETIL 250 MG CAPSULE PO SCH (16:48)
[2018-09-17] MEDS ORDERED: ZALEPLON 5 MG CAPSULE PO PRN (18:55)
[2018-09-17] MEDS: DICLOFENAC TOP SCH (21:42)
[2018-09-17] MEDS: DIMETHYL SULFOXIDE TOP SCH (21:42)
[2018-09-17] MEDS: PANTOPRAZOLE 40 MG TABLET PO SCH (21:43)
[2018-09-18] MEDS: LACTATED RINGERS 1,000 ML IV SCH ×4 (01:39→19:08)
[2018-09-18 05:25] LABS: Basophils % 0.2 % (0.0-0.8); Eosinophils # 0.1 10*3/uL (0.0-0.87); Eosinophils % 1.7 % (0.00-10.9); Hematocrit 24.7 VOL% (35.7-47.0); Hemoglobin 7.8 GM/DL (12.0-16.0); Immature Granulocytes % 0.4 %; Immature Granulocytes Absolute 0.03 #; Lymphocytes % 11.9 % (21.3-54.2); Mean Corpuscular HGB Conc 31.6 GM/DL (32-36); Mean Corpuscular Hemoglobin 29 PG (27-34); Mean Corpuscular Volume 91.5 FL (87-102); Mean Platelet Volume 12.8 FL (9.6-12.0); Monocytes # 0.1 10*3/uL (0.11-0.8); Monocytes % 1.3 % (1.7-12.7); Neutrophils # 6.9 10*3/uL (1.4-7.4); Neutrophils % 84.5 % (38.7-73.9); Red Cell Distribution Width 15.1 % (9.3-17.3)
[2018-09-18 05:31] LABS: INR 3.4
[2018-09-18 05:38] LABS: Alanine Aminotransferase < 9 U/L (13-56); Albumin 1.8 G/DL (3.4-5.0); Alkaline Phosphatase 94 U/L (45-117); Aspartate Amino Transferase 21 U/L (0-37); Bilirubin,Total < 0.39 MG/DL (0.2-1.0); Blood Urea Nitrogen 35 MG/DL (7-18); Calcium 6.7 MG/DL (8.5-10.1); Glucose 90 MG/DL (74-106); Osmolality,Calculated 282.7 MOS/KG (273-304); Potassium 2.9 MMOL/L (3.5-5.1); Sodium 138 MMOL/L (136-145); Total Protein 4.9 G/DL (6.4-8.3)
[2018-09-18 05:42] LABS: PT Patient Result 36.3 SECS; Platelet Count 160 T/CUMM (130-400); White Blood Count 8.2 T/CUMM (4-12)
[2018-09-18 06:16] LABS: Eosinophils 2 % (0-10); Hypochromasia 1+; Lymphocytes 9 % (20-55); Microcytosis Slight; Segmented Neutrophils 89 % (50-85); Target Cells Slight; Total Cells Counted 100
[2018-09-18 06:17] LABS: Platelet Estimate Adequate
[2018-09-18] MEDS ORDERED: POTASSIUM CHLORIDE 20 MEQ TABLET PO ONE (07:52)
[2018-09-18] MEDS: AZITHROMYCIN 250 MG TABLET PO SCH (08:02)
[2018-09-18] MEDS: MYCOPHENOLATE MOFETIL 250 MG CAPSULE PO SCH ×2 (08:02→20:59)
[2018-09-18] MEDS: POTASSIUM CHLORIDE 20 MEQ TABLET PO SCH (08:02)
[2018-09-18] MEDS: CALCIUM (CARBONATE)/VITAMIN D 500 MG-200 UNIT TABLET PO SCH (08:02)
[2018-09-18] MEDS: FOLIC ACID 1 MG TABLET PO SCH (08:02)
[2018-09-18] MEDS: AZELASTINE NASAL 137 MCG/SPRAY 30 ML BOTTLE BOTH NARES SCH (08:13)
[2018-09-18] MEDS: cycloSPORINE OPH EMUL 1 VIAL BOTH EYES SCH ×2 (08:13→21:02)
[2018-09-18] MEDS: LACTOBACILLUS ACIDOPHILUS/BULGARICUS CAPLET PO SCH ×2 (08:34→20:59)
[2018-09-18] MEDS: DICLOFENAC TOP SCH ×2 (08:35→21:07)
[2018-09-18] MEDS: DIMETHYL SULFOXIDE TOP SCH ×2 (08:35→21:07)
[2018-09-18] MEDS: cefTRIAXone 1,000 MG in SYRINGE 1 EACH IV SCH (08:35)
[2018-09-18] MEDS ORDERED: MAGNESIUM SULF RIDER 2 GM in PREMIX 1 EACH IV ONE (12:59)
[2018-09-18] MEDS: HYDROXYCHLOROQUINE 200 MG TABLET PO SCH (13:34)
[2018-09-18] MEDS: METHENAMINE HIPPURATE 1 GM TABLET PO SCH (20:59)
[2018-09-18] MEDS: PANTOPRAZOLE 40 MG TABLET PO SCH (20:59)
[2018-09-18] MEDS ORDERED: EZETIMIBE 10 MG TABLET PO SCH (21:00)
[2018-09-18] MEDS ORDERED: DILTIAZEM CD 120 MG CAPSULE PO SCH (21:00)
[2018-09-19] MEDS: LACTATED RINGERS 1,000 ML IV SCH (03:57)
[2018-09-19 05:10] LABS: Basophils % 0.2 % (0.0-0.8); Eosinophils # 0.2 10*3/uL (0.0-0.87); Hematocrit 23.5 VOL% (35.7-47.0); Hemoglobin 7.4 GM/DL (12.0-16.0); Immature Granulocytes % 0.7 %; Immature Granulocytes Absolute 0.03 #; Lymphocytes # 0.9 10*3/uL (1.4-4.0); Lymphocytes % 18.9 % (21.3-54.2); Mean Corpuscular HGB Conc 31.5 GM/DL (32-36); Mean Corpuscular Hemoglobin 29 PG (27-34); Mean Corpuscular Volume 91.8 FL (87-102); Mean Platelet Volume 12.3 FL (9.6-12.0); Monocytes # 0.1 10*3/uL (0.11-0.8); Monocytes % 2.4 % (1.7-12.7); Neutrophils # 3.4 10*3/uL (1.4-7.4); Neutrophils % 73.8 % (38.7-73.9); Platelet Count 134 T/CUMM (130-400); Red Blood Count 2.56 MC/CUMM (3.8-5.5); Red Cell Distribution Width 15.2 % (9.3-17.3); White Blood Count 4.5 T/CUMM (4-12)
[2018-09-19 05:26] LABS: Calcium 6.9 MG/DL (8.5-10.1); Osmolality,Calculated 283.1 MOS/KG (273-304)
[2018-09-19 06:20] LABS: Anisocytosis 1+; Platelet Estimate Adequate; Poikilocytosis Slight
[2018-09-19 06:21] LABS: Tear Drop Cells Few
[2018-09-19] MEDS ORDERED: SODIUM CHLORIDE 0.9% 1,000 ML IV PRN (08:12)
[2018-09-19] MEDS: DIMETHYL SULFOXIDE TOP SCH (08:40)
[2018-09-19] MEDS: DICLOFENAC TOP SCH (08:40)
[2018-09-19] MEDS ORDERED: ALLOPURINOL 100 MG TABLET PO SCH (09:00)
[2018-09-19] MEDS ORDERED: BISOPROLOL/HCTZ 10-6.25 MG TABLET PO SCH (09:00)
[2018-09-19] MEDS: MYCOPHENOLATE MOFETIL 250 MG CAPSULE PO SCH (09:56)
[2018-09-19] MEDS: cycloSPORINE OPH EMUL 1 VIAL BOTH EYES SCH (09:58)
[2018-09-19] MEDS: AZELASTINE NASAL 137 MCG/SPRAY 30 ML BOTTLE BOTH NARES SCH (11:22)
[2018-09-19] MEDS: cefTRIAXone 1,000 MG in SYRINGE 1 EACH IV SCH (11:33)
[2018-09-19 11:52] VITALS: BP 114/76
[2018-09-19] MEDS ORDERED: cefTRIAXone 1,000 MG VIAL IM SCH (12:00)
[2018-09-19] MEDS: FOLIC ACID 1 MG TABLET PO SCH (12:10)
[2018-09-19] MEDS: CALCIUM (CARBONATE)/VITAMIN D 500 MG-200 UNIT TABLET PO SCH (12:10)
[2018-09-19] MEDS: METHENAMINE HIPPURATE 1 GM TABLET PO SCH (12:10)
[2018-09-19] MEDS: POTASSIUM CHLORIDE 20 MEQ TABLET PO SCH (12:10)
[2018-09-19] MEDS: HYDROXYCHLOROQUINE 200 MG TABLET PO SCH (12:10)
[2018-09-19] MEDS: LACTOBACILLUS ACIDOPHILUS/BULGARICUS CAPLET PO SCH (12:10)
[2018-09-19] MEDS ORDERED: AMPICILLIN 500 MG CAPSULE PO SCH (15:00)
[2018-09-19] MEDS ORDERED: MYCOPHENOLATE MOFETIL 250 MG CAPSULE PO SCH (16:30)
== END 2018-09-19 13:04 | disposition home or self-care (01) | DRG 683 ==
LOC: N.ED 08:08 → SUATTDRO 12:14 → N.EDINP 12:14 → N.ICU 13:58 → N.4E 09-18 15:07
PROVIDERS: ADMIT Family Medicine; ATTEND Emergency Medicine

== ENCOUNTER 2019-08-31 13:20 | Inpatient (IN) ==
[2019-08-31 14:24] LABS: Basophils % 0.3 % (0.0-0.8); Eosinophils # 0.1 10*3/uL (0.0-0.87); Eosinophils % 0.5 % (0.00-10.9); Hematocrit 37.7 VOL% (35.7-47.0); Hemoglobin 11.7 GM/DL (12.0-16.0); Immature Granulocytes Absolute 0.12 #; Lymphocytes % 8.3 % (21.3-54.2); Mean Platelet Volume 11.6 FL (9.6-12.0); Monocytes % 3.8 % (1.7-12.7); Neutrophils % 86.1 % (38.7-73.9); Platelet Count 266 T/CUMM (130-400); Red Blood Count 4.01 MC/CUMM (3.8-5.5); Red Cell Distribution Width 15.4 % (9.3-17.3); White Blood Count 12.2 T/CUMM (4-12)
[2019-08-31] MEDS ORDERED: SODIUM CHLORIDE 0.9% 1,000 ML IV STA (14:51)
[2019-08-31] MEDS ORDERED: DILTIAZEM 50 MG/10 ML VIAL IV STA (14:51)
[2019-08-31 14:57] LABS: Alanine Aminotransferase 9 U/L (13-56); Albumin 2.9 G/DL (3.4-5.0); Alkaline Phosphatase 166 U/L (45-117); Aspartate Amino Transferase 12 U/L (0-37); Blood Urea Nitrogen 35 MG/DL (7-18); Calcium 9.5 MG/DL (8.5-10.1); Estimated Glom Filtration Rate 32 ML/MIN; Glucose 84 MG/DL (74-106); Osmolality,Calculated 266.8 MOS/KG (273-304); Total Protein 7.1 G/DL (6.4-8.3)
[2019-08-31] MEDS: dilTIAZem Drip 125 MG/125 ML PREMIX IV SCH (15:06)
[2019-08-31] MEDS ORDERED: AZITHROMYCIN INJ 500 MG in SODIUM CHLORIDE 0.9% 250 ML IV STA (15:14)
[2019-08-31] MEDS ORDERED: cefTRIAXone 1,000 MG in SODIUM CHLORIDE 0.9% 100 ML IV STA (15:14)
[2019-08-31 16:12] LABS: PT Patient Result 11.2 SECS (9.6-12.2)
[2019-08-31] MEDS ORDERED: SIMETHICONE CHEW 125 MG TABLET PO PRN (16:30)
[2019-08-31] MEDS ORDERED: SODIUM CHLORIDE 0.9% 1,000 ML IV SCH (16:30)
[2019-08-31] MEDS ORDERED: ACETAMINOPHEN 325 MG TABLET PO PRN (16:30)
[2019-08-31] MEDS ORDERED: ZALEPLON 5 MG CAPSULE PO PRN (16:30)
[2019-08-31] MEDS ORDERED: DOCUSATE SODIUM 100 MG CAPSULE PO PRN (16:30)
[2019-08-31] MEDS ORDERED: ALUMINUM/MAGNES/SIMETH MAX STR 30 ML UDCUP PO PRN (16:30)
[2019-08-31] MEDS ORDERED: ONDANSETRON 4 MG TABLET PO PRN (16:39)
[2019-08-31] MEDS ORDERED: CHOLESTYRAMINE 4 GM PACK PO PRN (16:39)
[2019-08-31] MEDS ORDERED: MECLIZINE 12.5 MG TABLET PO PRN (16:39)
[2019-08-31] MEDS ORDERED: fentaNYL 25 MCG/HR PATCH TRANSDERM SCH (18:00)
[2019-08-31] MEDS: ALBUTEROL 2.5 MG/3 ML NEB RESP TX SCH (21:27)
[2019-08-31] MEDS: IPRATROPIUM 500 MCG/2.5 ML NEB RESP TX SCH (21:27)
[2019-08-31] MEDS: ENOXAPARIN 40 MG/0.4 ML SYRINGE SUBCUT SCH (22:11)
[2019-08-31] MEDS: MYCOPHENOLATE MOFETIL 250 MG CAPSULE PO SCH (22:11)
[2019-08-31] MEDS: METHENAMINE HIPPURATE 1 GM TABLET PO SCH (22:12)
[2019-08-31] MEDS: DILTIAZEM CD 120 MG CAPSULE PO SCH (22:13)
[2019-08-31] MEDS: EZETIMIBE 10 MG TABLET PO SCH (22:13)
[2019-08-31] MEDS: MAGNESIUM CHLORIDE 64 MG TABLET PO SCH (22:14)
[2019-08-31] MEDS: ONDANSETRON 4 MG/2 ML VIAL IV PRN (22:15)
[2019-08-31] MEDS: cycloSPORINE OPH EMUL 1 VIAL BOTH EYES SCH (22:15)
[2019-09-01] MEDS: ALBUTEROL 2.5 MG/3 ML NEB RESP TX SCH ×4 (02:10→19:13)
[2019-09-01] MEDS: ONDANSETRON 4 MG/2 ML VIAL IV PRN (06:28)
[2019-09-01 07:04] LABS: Basophils % 0.2 % (0.0-0.8); Eosinophils # 0.2 10*3/uL (0.0-0.87); Eosinophils % 1.8 % (0.00-10.9); Hemoglobin 8.5 GM/DL (12.0-16.0); Immature Granulocytes % 1.3 %; Immature Granulocytes Absolute 0.11 #; Lymphocytes # 0.7 10*3/uL (1.4-4.0); Lymphocytes % 8.1 % (21.3-54.2); Mean Corpuscular HGB Conc 31.5 GM/DL (32-36); Mean Corpuscular Volume 94.1 FL (87-102); Mean Platelet Volume 11.5 FL (9.6-12.0); Monocytes % 5.4 % (1.7-12.7); Neutrophils % 83.2 % (38.7-73.9); Platelet Count 175 T/CUMM (130-400); Red Blood Count 2.87 MC/CUMM (3.8-5.5); Red Cell Distribution Width 15.7 % (9.3-17.3); White Blood Count 8.2 T/CUMM (4-12)
[2019-09-01] MEDS: MYCOPHENOLATE MOFETIL 250 MG CAPSULE PO SCH ×2 (07:04→15:51)
[2019-09-01] MEDS: IPRATROPIUM 500 MCG/2.5 ML NEB RESP TX SCH ×3 (07:20→19:13)
[2019-09-01 07:25] LABS: Alanine Aminotransferase < 6 U/L (13-56); Albumin 2.1 G/DL (3.4-5.0); Alkaline Phosphatase 128 U/L (45-117); Aspartate Amino Transferase 12 U/L (0-37); Blood Urea Nitrogen 26 MG/DL (7-18); Calcium 8.5 MG/DL (8.5-10.1); Estimated Glom Filtration Rate 70 ML/MIN; Glucose 93 MG/DL (74-106); Osmolality,Calculated 268.5 MOS/KG (273-304); Total Protein 5.4 G/DL (6.4-8.3)
[2019-09-01] MEDS: POTASSIUM CHLORIDE 20 MEQ TABLET PO SCH (09:26)
[2019-09-01] MEDS: MONTELUKAST 10 MG TABLET PO SCH (09:26)
[2019-09-01] MEDS: HYDROXYCHLOROQUINE 200 MG TABLET PO SCH (09:27)
[2019-09-01] MEDS: FOLIC ACID 1 MG TABLET PO SCH (09:27)
[2019-09-01] MEDS: allopurinoL 100 MG TABLET PO SCH (09:27)
[2019-09-01] MEDS: FUROSEMIDE 40 MG TABLET PO SCH (09:27)
[2019-09-01] MEDS: PANTOPRAZOLE 40 MG TABLET PO SCH (09:27)
[2019-09-01] MEDS: ASPIRIN EC 81 MG TABLET PO SCH (09:28)
[2019-09-01] MEDS: MAGNESIUM CHLORIDE 64 MG TABLET PO SCH ×2 (09:28→22:01)
[2019-09-01] MEDS: METHENAMINE HIPPURATE 1 GM TABLET PO SCH ×2 (09:29→22:01)
[2019-09-01] MEDS: CALCIUM (CARBONATE)/VITAMIN D 500 MG-200 UNIT TABLET PO SCH (09:29)
[2019-09-01] MEDS: BISOPROLOL 5 MG TABLET PO SCH (09:34)
[2019-09-01] MEDS: cycloSPORINE OPH EMUL 1 VIAL BOTH EYES SCH ×2 (09:40→22:01)
[2019-09-01] MEDS: POTASSIUM CHLORIDE 20 MEQ TABLET PO PRN (13:48)
[2019-09-01] MEDS: cefTRIAXone 1,000 MG in SYRINGE 1 EACH IV SCH (15:53)
[2019-09-01] MEDS: dilTIAZem Drip 125 MG/125 ML PREMIX IV SCH (16:18)
[2019-09-01 18:36] LABS: Apearance,Urine CLEAR (Clear); Bilirubin,Urine Negative (Negative); Blood, Urine Negative (Negative); Glucose,Urine (UA) Negative (Negative); Hyaline Casts,Urine 3 /LPF (0-3); Ketones,Urine Negative (Negative); Mucus,Urine Occasional /LPF (Occasional); Nitrite,Urine Negative (Negative); Protein,Urine Negative; RBC,Urine 1 /HPF (0-4); Urine Color Straw (Yellow); Urine Specific Gravity 1.006 (1.001-1.035); Urine Urobilinogen < 2.0 EU/DL (0.2-1.0); WBC,Urine 18 /HPF (0-6)
[2019-09-01] MEDS: DILTIAZEM CD 120 MG CAPSULE PO SCH (18:37)
[2019-09-01] MEDS: EZETIMIBE 10 MG TABLET PO SCH (18:37)
[2019-09-01] MEDS: AZITHROMYCIN INJ 500 MG in SODIUM CHLORIDE 0.9% 250 ML IV SCH (18:40)
[2019-09-01] MEDS: ENOXAPARIN 40 MG/0.4 ML SYRINGE SUBCUT SCH (21:59)
[2019-09-02] MEDS: ALBUTEROL 2.5 MG/3 ML NEB RESP TX SCH ×4 (02:01→20:26)
[2019-09-02] MEDS: MYCOPHENOLATE MOFETIL 250 MG CAPSULE PO SCH ×2 (06:08→16:11)
[2019-09-02] MEDS ORDERED: LACTATED RINGERS 1,000 ML IV SCH (08:00)
[2019-09-02] MEDS: IPRATROPIUM 500 MCG/2.5 ML NEB RESP TX SCH ×3 (08:03→20:26)
[2019-09-02 09:32] LABS: Basophils % 0.6 % (0.0-0.8); Eosinophils # 0.3 10*3/uL (0.0-0.87); Hematocrit 29.2 VOL% (35.7-47.0); Hemoglobin 8.7 GM/DL (12.0-16.0); Immature Granulocytes % 2.1 %; Immature Granulocytes Absolute 0.15 #; Lymphocytes % 13.4 % (21.3-54.2); Mean Corpuscular HGB Conc 29.8 GM/DL (32-36); Mean Corpuscular Volume 96.4 FL (87-102); Mean Platelet Volume 11.6 FL (9.6-12.0); Monocytes % 5.4 % (1.7-12.7); Neutrophils % 74.5 % (38.7-73.9); Platelet Count 204 T/CUMM (130-400); Red Blood Count 3.03 MC/CUMM (3.8-5.5); Red Cell Distribution Width 15.8 % (9.3-17.3); White Blood Count 7.2 T/CUMM (4-12)
[2019-09-02 09:45] LABS: Calcium 8.6 MG/DL (8.5-10.1); Osmolality,Calculated 268.2 MOS/KG (273-304)
[2019-09-02] MEDS: HYDROXYCHLOROQUINE 200 MG TABLET PO SCH (09:55)
[2019-09-02] MEDS: allopurinoL 100 MG TABLET PO SCH (09:55)
[2019-09-02] MEDS: METHENAMINE HIPPURATE 1 GM TABLET PO SCH ×2 (09:56→20:46)
[2019-09-02] MEDS: CALCIUM (CARBONATE)/VITAMIN D 500 MG-200 UNIT TABLET PO SCH (09:56)
[2019-09-02] MEDS: ASPIRIN EC 81 MG TABLET PO SCH (09:56)
[2019-09-02] MEDS: MAGNESIUM CHLORIDE 64 MG TABLET PO SCH ×2 (09:56→20:44)
[2019-09-02] MEDS: PANTOPRAZOLE 40 MG TABLET PO SCH (09:56)
[2019-09-02] MEDS: FOLIC ACID 1 MG TABLET PO SCH (09:56)
[2019-09-02] MEDS: POTASSIUM CHLORIDE 20 MEQ TABLET PO SCH (09:56)
[2019-09-02] MEDS: MONTELUKAST 10 MG TABLET PO SCH (09:56)
[2019-09-02] MEDS: FUROSEMIDE 40 MG TABLET PO SCH (09:56)
[2019-09-02] MEDS: BISOPROLOL 5 MG TABLET PO SCH (09:57)
[2019-09-02] MEDS: cycloSPORINE OPH EMUL 1 VIAL BOTH EYES SCH ×2 (09:58→20:45)
[2019-09-02] MEDS: cefTRIAXone 1,000 MG in SYRINGE 1 EACH IV SCH (15:18)
[2019-09-02] MEDS: dilTIAZem Drip 125 MG/125 ML PREMIX IV SCH (16:11)
[2019-09-02] MEDS ORDERED: fentaNYL 25 MCG/HR PATCH TRANSDERM SCH (17:00)
[2019-09-02] MEDS: AZITHROMYCIN INJ 500 MG in SODIUM CHLORIDE 0.9% 250 ML IV SCH (17:42)
[2019-09-02] MEDS: POTASSIUM CHLORIDE 20 MEQ TABLET PO PRN (17:48)
[2019-09-02] MEDS: DILTIAZEM CD 120 MG CAPSULE PO SCH (18:11)
[2019-09-02] MEDS: EZETIMIBE 10 MG TABLET PO SCH (18:11)
[2019-09-02] MEDS: ENOXAPARIN 40 MG/0.4 ML SYRINGE SUBCUT SCH (20:46)
[2019-09-03] MEDS: ALBUTEROL 2.5 MG/3 ML NEB RESP TX SCH ×3 (00:31→13:47)
[2019-09-03 04:40] LABS: Basophils % 0.4 % (0.0-0.8); Eosinophils # 0.2 10*3/uL (0.0-0.87); Eosinophils % 2.3 % (0.00-10.9); Hematocrit 30.6 VOL% (35.7-47.0); Hemoglobin 9.1 GM/DL (12.0-16.0); Immature Granulocytes % 1.7 %; Immature Granulocytes Absolute 0.16 #; Lymphocytes # 0.8 10*3/uL (1.4-4.0); Lymphocytes % 8.1 % (21.3-54.2); Mean Corpuscular HGB Conc 29.7 GM/DL (32-36); Mean Corpuscular Volume 96.2 FL (87-102); Mean Platelet Volume 12.5 FL (9.6-12.0); Monocytes % 4.2 % (1.7-12.7); Neutrophils % 83.3 % (38.7-73.9); Platelet Count 168 T/CUMM (130-400); Red Blood Count 3.18 MC/CUMM (3.8-5.5); Red Cell Distribution Width 15.7 % (9.3-17.3); White Blood Count 9.4 T/CUMM (4-12)
[2019-09-03 05:00] LABS: Calcium 8.3 MG/DL (8.5-10.1); Osmolality,Calculated 267.2 MOS/KG (273-304)
[2019-09-03] MEDS: MYCOPHENOLATE MOFETIL 250 MG CAPSULE PO SCH (06:43)
[2019-09-03] MEDS: IPRATROPIUM 500 MCG/2.5 ML NEB RESP TX SCH ×2 (07:23→13:47)
[2019-09-03] MEDS ORDERED: LACTATED RINGERS 1,000 ML IV SCH (08:00)
[2019-09-03] MEDS ORDERED: ETOMIDATE 20 MG/10 ML VIAL IV ONE (09:00)
[2019-09-03] MEDS ORDERED: AZITHROMYCIN 250 MG TABLET PO SCH (09:00)
[2019-09-03] MEDS ORDERED: LIDOCAINE 2% 5 ML VIAL ONE (09:00)
[2019-09-03] MEDS: ONDANSETRON 4 MG/2 ML VIAL IV PRN (12:17)
[2019-09-03] MEDS: METHENAMINE HIPPURATE 1 GM TABLET PO SCH (14:35)
[2019-09-03] MEDS: HYDROXYCHLOROQUINE 200 MG TABLET PO SCH (14:36)
[2019-09-03] MEDS: allopurinoL 100 MG TABLET PO SCH (14:37)
[2019-09-03] MEDS: POTASSIUM CHLORIDE 20 MEQ TABLET PO PRN (14:37)
[2019-09-03] MEDS: FOLIC ACID 1 MG TABLET PO SCH (14:37)
[2019-09-03] MEDS: POTASSIUM CHLORIDE 20 MEQ TABLET PO SCH (14:37)
[2019-09-03] MEDS: PANTOPRAZOLE 40 MG TABLET PO SCH (14:37)
[2019-09-03] MEDS: MAGNESIUM CHLORIDE 64 MG TABLET PO SCH (14:38)
[2019-09-03] MEDS: MONTELUKAST 10 MG TABLET PO SCH (14:38)
[2019-09-03] MEDS: ASPIRIN EC 81 MG TABLET PO SCH (14:38)
[2019-09-03] MEDS: CALCIUM (CARBONATE)/VITAMIN D 500 MG-200 UNIT TABLET PO SCH (14:38)
[2019-09-03] MEDS: FUROSEMIDE 40 MG TABLET PO SCH (14:39)
[2019-09-03] MEDS: cycloSPORINE OPH EMUL 1 VIAL BOTH EYES SCH (14:39)
[2019-09-03] MEDS: BISOPROLOL 5 MG TABLET PO SCH (14:39)
[2019-09-03 16:11] VITALS: BP 98/44
== END 2019-09-03 16:54 | disposition home health service (06) | DRG 308 ==
LOC: N.ED 13:20 → N.EDINP 16:30 → SUPCPDRO 16:30 → N.TELEN 18:10
PROVIDERS: ADMIT Family Medicine; ATTEND Family Medicine